=== PATIENT | female | born 1955 | race Caucasian/White ===

== ENCOUNTER → 2021-01-24 14:13 | Outpatient (CLI) | payer OTHER, SELFPAY ==
--- NOTE | ~2021-01-24 | XR_ITS ---
XR foot RT min 3V DATE: 01/24/2021 14:36 INDICATION: Right foot pain TECHNIQUE: 4 views COMPARISON: None FINDINGS: There is a screw at the metaphysis and proximal to mid shaft of the proximal phalanx of the first digit. Status post bunionectomy. 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 No fracture or dislocation, periosteal reaction or bone destruction or erosive change. No calcaneal e nthesopathy.. IMPRESSION: Status post bunionectomy; screw at the proximal phalanx of first digit Osteoarthritis at first metatarsophalangeal joint Reviewed, dictated and finalized at location A. IMPRESSION: Status post bunionectomy; screw at the proximal phalanx of first di git Osteoarthritis at first metatarsophalangeal joint
== END ==
PROVIDERS: Visit Provider Chiropractor Rehabilitation
DX: M79.671 Pain in right foot (principal); Z98.890 Other specified postprocedural states; M19.071 Primary osteoarthritis, right ankle and foot
CPT/HCPCS: 73630